=== PATIENT | male | born 1980 | race Caucasian/White ===

== ENCOUNTER 2017-11-14 10:35 | Emergency (ER) | payer OTHER ==
[~2017-11-14] VITALS: Ht 188 cm; Wt 97.1 kg
--- NOTE | ~2017-11-14 | EKG ---
[address] [address] ELECTROCARDIOGRAM REPORT Name: NICANOR PEGUERO Room #: DEP MERARI Liriano#: [id number] Admission: 11/14/17 Attend Phys: Discharge: 11/14/17 Date of : 80 Report #: [id number] THIS REPORT FOR: //name// [facility] ED Test Date: 2017-11-14 Test Time: 11:05:14 Pat Name: NICANOR PEGUERO Department: Room: Gender: Printed Circuit Board Preassembler: francine : 1980 Requested By: Roque Kilgore Order Number: [id number] MD: Bob Jenkins Measurements Intervals [place] Rate: 71 P: 30 MT: 147 QRS: 41 QRSD: 118 T: 7 QT: 429 QTc: 467 Interpretive Statements Sinus rhythm Nonspecific intraventricular conduction delay No previous ECG available for comparison Electronically Signed On 11-14-2017 15:31:38 [employer]IOR [employer] by Bob Jenkins [email or web address] <ELECTRONICALLY SIGNED> By: Bob Jenkins MD 11/14/17 1531 1105 [id number] Bob Jenkins MD /EPI
[2017-11-14 11:21] LABS: ABSOLUTE NEUTROPHILS 3.9 thou/uL (1.4-8.2); BASOPHILS 0.6 % (0.0-2.0); EOSINOPHILS 0.1 % (0.0-3.0); HEMATOCRIT 44.7 % (42.0-52.0); HEMOGLOBIN 15.6 gm/dL (14.0-18.0); LYMPHOCYTES 26.8 % (24.0-44.0); MCH 31.8 pg (26.0-34.0); MCHC 34.9 g/dL (28.0-37.0); MCV 91.1 fL (80.0-100.0); MONOCYTES 9.6 % (1.0-8.0); PLATELET COUNT 174 thou/uL (150-400); POLYS 62.9 % (36.0-66.0); RBC 4.91 mil/uL (4.50-6.00); RDW 13.8 % (10.5-14.5); WBC 6.1 thou/uL (4.0-11.0)
[2017-11-14 11:30] LABS: ANION GAP 10 mmol/L (7-16); BUN 13 mg/dL (7-18); CALCIUM 8.7 mg/dL (8.5-10.1); CHLORIDE 102 mmol/L (98-107); CO2 27 mmol/L (21-32); CREATININE 1.9 mg/dL (0.7-1.3); GLUCOSE 124 mg/dL (74-106); POTASSIUM 3.7 mmol/L (3.5-5.1); SODIUM 139 mmol/L (136-145)
[2017-11-14 11:41] LABS: TROPONIN-I < 0.04 ng/mL (<0.06)
[2017-11-14 14:42] LABS: URINE BILIRUBIN NEGATIVE (Negative); URINE BLOOD TRACE (Negative); URINE CLARITY CLEAR; URINE COLOR YELLOW; URINE GLUCOSE-RANDOM* NEGATIVE (Negative); URINE KETONES NEGATIVE (Negative); URINE LEUKOCYTES-REFLEX NEGATIVE (Negative); URINE NITRITE-REFLEX NEGATIVE (Negative); URINE PROTEIN (DIPSTICK) NEGATIVE (Negative); URINE SPECIFIC GRAVITY <= 1.005 (1.005-1.035); URINE UROBILINOGEN 0.2 E.U./dl (0.2-1.0)
== END 2017-11-14 15:05 | disposition home or self-care (01) ==
LOC: ER 10:35
PROVIDERS: Emergency Medicine
DX: S01.81XA Laceration without foreign body of other part of head, initial encounter (principal); N17.9 Acute kidney failure, unspecified; I95.1 Orthostatic hypotension; B34.9 Viral infection, unspecified; F17.210 Nicotine dependence, cigarettes, uncomplicated; W17.89XA Other fall from one level to another, initial encounter; Y93.89 Activity, other specified; Y92.89 Other specified places as the place of occurrence of the external cause; Y99.8 Other external cause status

== ENCOUNTER 2021-11-12 14:46 | Emergency (ER) | payer OTHER ==
[~2021-11-12] VITALS: Ht 188 cm; Wt 86.2 kg
[2021-11-12 15:30] VITALS: BP 159/121
[2021-11-12] MEDS ORDERED: CEPHALEXIN 250250 M1 PO (16:58)
== END 2021-11-12 17:05 | disposition home or self-care (01) ==
LOC: ER 14:46
DX: S61.412A Laceration without foreign body of left hand, initial encounter (principal); S66.328A Laceration of extensor muscle, fascia and tendon of other finger at wrist and hand level, initial encounter; F17.210 Nicotine dependence, cigarettes, uncomplicated; W27.0XXA Contact with workbench tool, initial encounter; Y93.89 Activity, other specified; Y92.89 Other specified places as the place of occurrence of the external cause; Y99.8 Other external cause status